=== PATIENT | male | born 1990 | race Hispanic/Latino ===

== ENCOUNTER 2024-11-26 09:00 | Outpatient (CLI) | payer OTHER | END 2024-11-26 09:01 | disposition home or self-care (01) | LOC: BICMRI 09:00 | PROVIDERS: ATTEND Orthopaedic Surgery | DX: S76.111A Strain of right quadriceps muscle, fascia and tendon, initial encounter (principal); M23.91 Unspecified internal derangement of right knee; Z98.890 Other specified postprocedural states ==